=== PATIENT | male | born 1995 | race Asian ===

== ENCOUNTER 2016-07-15 12:29 | Emergency (ER) | payer OTHER ==
[2016-07-15 12:36] VITALS: RESP 17; TEMP 98.1
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
[2016-07-15 13:44] VITALS: BP 121/76; PULSE 71; O2SAT 98
== END 2016-07-15 13:43 | disposition home or self-care (01) ==
DX: S09.90XA Unspecified injury of head, initial encounter (principal); V21.4XXA Motorcycle driver injured in collision with pedal cycle in traffic accident, initial encounter; Y93.55 Activity, bike riding

== ENCOUNTER → 2016-10-22 | Outpatient (CLI) | payer OTHER | LOC: FIMAGING 15:53 | PROVIDERS: ATTEND Family Medicine | DX: Z11.1 Encounter for screening for respiratory tuberculosis (principal); R76.11 Nonspecific reaction to tuberculin skin test without active tuberculosis ==